=== PATIENT | male | born 1980 | race Caucasian/White ===

== ENCOUNTER 2023-06-18 19:23 | Emergency (ER) | payer MEDICARE, SELFPAY ==
[2023-06-18 19:25] VITALS: BP 143/85; PULSE 56; RESP 12; TEMP 35.6; O2SAT 96; O2SAT 97; BMI 30.2
--- NOTE | 2023-06-18 20:02 | EX.ED.VIS.HA ---
HPI History of Present Illness Chief Complaint: Headache Informant: patient and spouse/S.O. Narrative Narrative: Nontraumatic frontal headache for 2 days with blurry vision. No nausea or vomiting. No photophobia. Has had history of headaches however not this severe. Recently hospitalized for 1 day at [facility] for hyperglycemia he was started on glipizide. His sugars in the 500s. He was not in DKA. Take it once a day. Sugar today is 160. History of chronic kidney disease, stating recently his toe stage II per his report. His polyuria and polydipsia has been improving since starting his diabetic medications. He is following Dr. Meyers. He does wear glasses states last eye exam this past April. 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 PFSH PFSH Medical History no medical history Allergy/AdvReac Type Severity Reaction Status Date / Time meperidine [From Demerol] Allergy Severe Shortness Verified 06/18/23 19:24 of breath Social History Smoking Status: Former smoker ROS ROS ED Constitutional Constitutional ED: Denies chills, fever(s) or sweats Eyes Eyes: Reports blurry vision; Denies change in vision ENT ENT ED: Denies dysphagia or sore throat Cardiovascular Cardiovascular: Denies chest pain, leg edema, palpitations or racing heartbeat Respiratory/Chest Respiratory/Chest: Denies cough, dyspnea or dyspnea on exertion Gastrointestinal Gastrointestinal: Denies abdominal pain, diarrhea, nausea or vomiting Genitourinary Genitourinary ED: Denies dysuria, hematuria or urinary frequency Musculoskeletal Musculoskeletal: Denies back pain, extremity pain or neck pain Integumentary Denies rash or wounds Neurologic Neurologic: Reports headache(s); Denies paresthesias or weakness EXAM Physical Exam Const Vital Signs: 06/18/23 19:25 06/18/23 19:25 Temperature 96.1 F L 96.1 F L Temperature Source Temporal Temporal Pulse Rate 56 L 56 L Respiratory Rate 12 12 Blood Pressure 143/85 H 143/85 H Blood Pressure Mean 104 104 Pulse Ox 96 97 Oxygen Delivery Method Room Air Room Air Positive well nourished and well developed General Appearance ED: well developed and NAD HEENT Reports moist mucous membranes normocephalic and atraumatic Eyes PERRL, EOMs intact bilaterally and conjunctivae normal General Eye ED: Yes normal appearance of both eyes Neck no lymphadenopathy, supple and no meningeal signs General: Negative for tenderness Chest Wall Chest: Negative for tenderness Resp normal respiratory effort and normal air movement Effort and Inspection: symmetric chest movement; Negative for respiratory distress Cardio regular rate, regular rhythm and no murmurs Peripheral Pulses: pulses 2+ throughout GI normal to inspection, nondistended, normoactive bowel sounds and non-tender Palpation: Negative for guarding or rebound tenderness present Back/Spine no CVA tenderness and no thoracic nor lumbar tenderness Extremity normal to inspection General Extremety ED: Negative for edema or tenderness General Extremity: Negative for edema Neuro oriented x3, CN's II-XII intact bilaterally and no sensory deficits noted Sensorium / Orientation: awake and alert Skin no rashes or lesions noted and no wounds MDM MDM MDM Narrative Medical decision making narrative: Interventions / MDM: Differential diagnosis: Headache, blurry vision Diagnosis considered but do not suspect: Intracranial hemorrhage however CT negative. No clinical glaucoma Eyes were not fixed or dilated. My EKG interpretation: N/A Imaging independently reviewed and interpreted by myself: CT brain: No acute process read by radiology. External documents reviewed: N/A Test considered but not ordered:N/A ED course: Patient nontraumatic headache that is worsening. Blurry vision. No focal deficits. Recent hyperglycemia. IV established will avoid NSAIDs due to his chronic kidney disease history. Reglan and Benadryl. Labs obtained. CT brain ordered. CT brain negative. Symptoms are improving. Visual acuity uncorrected 20/200 each eye. No fixed dilated pupils for concerns for glaucoma. He is not vomiting. 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 Given follow-up with neurology if headache returns or persist. All questions were answered. Re-evaluation: stable Disposition discussed with patient/family/significant other: Patient and significant other Case discussed with consulting clinician: N/A This note was generated with [employer]ippi dictation software. It may contain incorrect words, spelling, and punctuation that were not noted in checking the note before signing. Lab Data Attestation: I reviewed the patient's lab results. Labs: Laboratory Results - last 24 hr 06/18/23 20:00 WBC 6.8 RBC 4.73 Hgb 14.5 Hct 42.1 MCV 89.0 MCH 30.7 MCHC 34.4 RDW Std Deviation 37.2 RDW Coeff of Yves 11.7 Plt Count 279 MPV 10.3 Immature Gran % (Auto) 0.600 Neut % (Auto) 52.7 Lymph % (Auto) 33.4 [place] % (Auto) 8.5 Eos % (Auto) 3.8 Baso % (Auto) 1.0 Absolute Neuts (auto) 3.6 Absolute Lymphs (auto) 2.28 Nucleated RBC % 0 Sodium 139 Potassium 3.6 Chloride 106 Carbon Dioxide 29.0 Anion Gap 4 L BUN 19 H Creatinine 1.20 Estim Creat Clear Calc 87.52 Est GFR (MDRD) Af Amer 85 Est GFR (MDRD) Non-Af 70 BUN/Creatinine Ratio 15.8 Glucose 137 H Calcium 10.1 Radiography Diagnostic Testing: Clinical Impression(s) from Imaging Studies Brain CT 06/18/23 20:22 IMPRESSION: Negative head/brain CT without intravenous contrast. Electronically Signed: Melquiades Pressley DO at 20:41 EDT , Discharge Plan Triage Chief Complaint: Headache ED Provider: Doug Dorsey Dx/Rx/DC Orders Clinical Impression: Headache, Blurred vision, bilateral Instructions: Understanding Vision Problems, ED Headache Unspecified Primary Care Provider: Care Physician,No Primary Referrals: Fahad Boss MD [Non-Staff -Ordering Privileges] - 1 Week Care Physician,No Primary [Primary Care Provider] - Activity Restrictions/Additional Instructions: Head CT negative. Creatinine 1.2 today with GFR of 85. Glucose 137 in the lab. Continue Tylenol as needed. Your visual acuity is 20/200 bilaterally. Follow-up with your eye doctor for further evaluation. Headache persists, follow-up with neurology. Disposition Disposition: Home, Self Care
[2023-06-18 20:09] LABS: Absolute Lymphocyte Count 2.28 X10^3/uL (0.83-4.51); Absolute Neutrophil Count 3.6 X10^3/uL (2.0-7.7); Basophil# 0.07 X10^3/uL; Eosinophil# 0.26 X10^3/uL; Eosinophils% 3.8 % (0-5); Hematocrit 42.1 % (40-54); Hemoglobin 14.5 g/dL (13.0-16.5); Lymphocyte # 2.28 X10^3/ul (0.83-4.51); Lymphocyte % 33.4 % (19-41); Mean Corp Hgb Conc 34.4 g/dL (32-36); Mean Corpuscular Hgb 30.7 pg (27.0-32.0); Mean Platelet Vol. 10.3 fl (6.2-12.0); Monocyte# 0.58 X10^3/uL; Monocyte% 8.5 % (0-10); NRBC Flagged by Analyzer 0 % (0-5); Neutrophil % 52.7 % (47-70); Platelet Count 279 K/mm3 (150-450); RBC Distribution Width CV 11.7 % (11.6-14.6); RBC Distribution Width SD 37.2 fl (35.1-43.9); Red Blood Count 4.73 M/mm3 (4.6-6.2); White Blood Count 6.8 K/mm3 (4.4-11.0)
[2023-06-18] MEDS: Metoclopramide 10 MG/2 ML Vial IV (20:11)
[2023-06-18] MEDS: DiphenhydrAMINE 50 MG/ML Syringe 25 MG IV (20:11)
[2023-06-18] MEDS: 0.9% Normal Saline (1000mL) 1,000 ML 999 ML IV (20:11)
--- NOTE | 2023-06-18 20:22 | CT_ITS ---
EXAM: CT HEAD WITHOUT INTRAVENOUS CONTRAST CLINICAL INDICATION: Pain TECHNIQUE: Multiple axial images were obtained of the head without intravenous contrast. This CT exam was performed using one or more of the following dose reduction techniques: automated exposure control, adjustment of the mA and/or kV according to patient size, and/or use of iterative reconstruction technique. COMPARISON: No relevant prior studies available. FINDINGS: BRAIN AND EXTRA-AXIAL SPACES: No significant abnormality. No intra- or extra-axial hemorrhage. No evidence of acute infarct. No intracranial mass or mass effect. There is preservation of the hyman/white matter interface. Ventricles are appropriate for age. Basal cisterns are patent. BONES/JOINTS: No significant abnormality. No discrete lytic or blastic abnormalities. SINUSES: No significant findings. MASTOID AIR CELLS: No significant effusion. ORBITS: No acute findings. CT/Brain/Head without Contrast IMPRESSION: Negative head/brain CT without intravenous contrast. Electronically Signed: Melquiades Pressley DO at 20:41 EDT ,
[2023-06-18 20:34] LABS: Anion Gap 4 (5-15); BUN 19 mg/dL (7-18); BUN/Creat Ratio 15.8 RATIO (10-20); Calcium,Total 10.1 mg/dL (8.5-10.1); Chloride 106 mmol/L (98-107); EST Glomerular Filtration Rate 70 mL/min (>60); Est Glom Filt Rate - Afr Amer 85 mL/min (>60); Estimated Creatinine Clearance 87.52 ml/min; Glucose 137 mg/dL (74-106); Potassium 3.6 mmol/L (3.5-5.1); Sodium Level 139 mmol/L (136-145)
[2023-06-18 22:10] VITALS: BP 130/75; PULSE 65; RESP 16; TEMP 36.8; O2SAT 98
== END 2023-06-18 22:11 | disposition home or self-care (01) ==
PROVIDERS: Emergency Provider Emergency Medicine; Visit Provider Emergency Medicine
DX: R51.9 Headache, unspecified (principal); E11.22 Type 2 diabetes mellitus with diabetic chronic kidney disease; Z87.891 Personal history of nicotine dependence; N18.9 Chronic kidney disease, unspecified; Z79.84 Long term (current) use of oral hypoglycemic drugs; H53.8 Other visual disturbances
CPT/HCPCS: 70450; 80048; 85025; 96361; 96374; 96375; 99284; J7030